=== PATIENT | male | born 1945 | race Caucasian/White ===

== ENCOUNTER 2021-07-31 15:55 | Emergency (ER) | payer MEDICARE, OTHER ==
[2021-07-31] MEDS: Bacitracin/Neomycin/Polymyxin B Oint 0.9 GM U/D Packet TOP ONE (16:14)
[2021-07-31] MEDS: Lidocaine 2% 5 ML SDV INJECT ONE (16:14)
== END 2021-07-31 17:00 | disposition home or self-care (01) ==
LOC: KA.ED 15:55
DX: S61.213A Laceration without foreign body of left middle finger without damage to nail, initial encounter (principal); X50.9XXA Other and unspecified overexertion or strenuous movements or postures, initial encounter
CPT/HCPCS: 12001; 36415; 73140-LT; 85610; 99283; 99283-25